=== PATIENT | male | born 1995 | race Caucasian/White ===

== ENCOUNTER 2020-09-22 08:59 | Emergency (ER) | payer MEDICAID ==
[~2020-09-22] VITALS: Ht 170.2 cm; Wt 74.8 kg
[2020-09-22] MEDS ORDERED: EPIPEN 2-P0.3 MG/0.3 IM (09:15)
[2020-09-22] MEDS ORDERED: PREDNISONE20 MG ORAL (09:15)
[2020-09-22] MEDS ORDERED: DiphenhydrAMINE 25mg/10ml Elixir ORAL ONE (09:15)
[2020-09-22] MEDS ORDERED: EPINEPHrine 1mg/1ml Amp IM ONE (09:15)
[2020-09-22] MEDS ORDERED: BENADRYL ALLERG25 M1 PO (09:15)
[2020-09-22] MEDS ORDERED: ALBUTEROL2.5 MG/3 M HHN (09:15)
[2020-09-22 09:17] VITALS: BP 126/74
[2020-09-22] MEDS ORDERED: FAMOTIDINE20 MG ORAL (09:18)
--- NOTE | 2020-09-22 09:18 | Emergency Room Report ---
History of Present Illness General Chief Complaint: Allergic Reaction Source: Patient, EMS Present Illness HPI 24-year-old male with past medical history of asthma presents by ambulance with chief complaint of itchy skin rash, shortness of breath, and nausea. Patient has been experiencing symptoms on and off since Thanksgiving. He admits to using a new soap/detergent and is exposed to cat hair and dander at home for which he is allergic to. Denies recent dietary changes, travel, sick contacts, fever, chills, cough, vomiting, diarrhea, headache, photophobia, neck pain, back pain, dysuria, melena, hematochezia, hemoptysis, chest pain or any other symptoms. Patient has not ever been evaluated by an chalk extruding machine operator. Denies history of intubation. The patient's symptoms were gradual onset, severity was moderate, duration since approximately 1 month. Quality: Itching Past medical history: Asthma Past surgical history: Denies Smoking: Denies Alcohol use: Denies Drug use: Marijuana Review of systems: CONST: No fevers or chills, No night sweats PULMONARY: No productive cough, positive shortness of breath CARDIAC: No chest pain, No palpitations GI: No vomiting, No diarrhea , No melena_or_BRBPR : No dysuria, No hematuria, No discharge NEURO: No new_focal_weakness_or_numbness, No confusion, No vision changes 14 point Review of Systems is otherwise negative except per HPI Physical Exam: GENERAL: Awake_alert_ nontoxic, no acute distress Spo2 95% on RA -normal EYES: Extraocular muscles are intact. Conjunctivae clear. Lids without swelling ENT: External nose and ear normal_in_appearance. Oropharynx clear. Head_atraumatic, Moist_oral_mucosa NECK: No JVD. No meningismus. No thyromegaly. Supple. Trachea midline RESP: No stridor, drooling, hoarse voice or dysphonia. Airway is intact. Uvula is midline. No angioedema or lip swelling. Normal respiratory effort. Symmetric rise. No stridor. Clear_to_auscultation_No_rales_No_wheezes CARDIAC: Tachycardic and regular rhytm. No_significant pedal edema. ABDOMEN: Soft. Nondistended. Nontender_No_rebound_or_guarding. MSK: Normal muscle tone, without rigidity. Extremities without asymmetric deformity or swelling. SKIN: Diffuse urticaria to the anterior chest, back, arms, forearms NEUROLOGIC: Alert, oriented x3. Motor_and_sensation_grossly_intact. No truncal ataxia. Gait_normal Psych: Normal mood and affect, normal judgment and insight - COORDINATION OF CARE Case was discussed with: Patient Any labs and imaging that were ordered were interpreted as part of the medical decision making: Medical Decision Making/Plan: DDx: Allergy versus anaphylaxis versus urticaria versus angioedema Patient presenting with rash and mild edema of the tongue in the setting of taking new medication, appears consistent with mild anaphylaxis. Patient protecting airway, no need for prophylactic intubation at this time point. Patient will be given epinephrine IM as well as Benadryl, Pepcid and pepcid and be observed for several hours. Patient observed with serial exams for over 2-3 hours and had significant improvement after the epinephrine and symptoms did not recur. Patient had no severe side effects after the initiation of epinephrine. Patient now back to baseline, appears stable for discharge home. Will discharge patient home with EpiPen, prednisone, Benadryl, and Pepcid to take for the next 5 days. Patient was instructed to avoid all potential allergic stimuli in the future The patient was instructed to avoid potential precipitating factor and to follow up with their regular physician for referral to multi media specialist for definitive allergy testing. Pertinent results reviewed with the patient. I educated the patient on the current treatment plan including the risks, benefits, and alternatives. I also discussed the extent and limitations of the current evaluation. The patient expressed understanding and agreement with plan. I recommended PMD follow-up within 1-2 days. Also advised that the patient return to the Emergency Department as soon as possible if they experience any new, persistent, or worsening symptoms. -CRITICAL CARE STATMENT- Given patient's presentation with acute anaphylaxis, required my immediate evaluation and attention Organ systems at risk include: cardiac / circulatory /respiratory Critical care performed for 120 minutes. Time is exclusive of separately billable procedures. Time includes: direct patient care, patient reassessment, coordination of patient care, review of patient's medical records, medical consultation, family consultation regarding treatment decisions and documentation of patient care. 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 COVID-19 Screening: Negative COVID-19 COVID-19 Testing Source: 2 months ago Nursing Documentation-[facility] Past Medical History: No Stated History Physical Exam Vital Signs Date Time Temp Pulse Resp B/P (MAP) Pulse Ox O2 Delivery O2 Flow Rate FiO2 09/22/20 08:55 99.1 106 16 126/74 (91) 100 Room Air Medical Decision Making Diagnostic Impression: Primary Impression: Allergic reaction Additional Impression: Anaphylactic reaction Last Vital Signs Date Time Temp Pulse Resp B/P (MAP) Pulse Ox O2 Delivery O2 Flow Rate FiO2 09/22/20 08:55 99.1 106 16 126/74 (91) 100 Room Air Disposition: HOME, SELF-CARE Admit Decision Time: 12:30 Condition: Stable Scripts Albuterol Sulfate (PROVENTIL HFA) 6.7 Gm Hfa.aer.ad 6.7 GM IH QID for 7 Days, #1 GM Prov: Sallie Esposito.Scott. 09/22/20 Famotidine* (Pepcid 20mg tablet*) 20 Mg Tablet 20 MG ORAL DAILY PRN for rash for 14 Days, #14 TAB 0 Refills Prov: Sallie Esposito.O. 09/22/20 Prednisone* (PREDNISONE*) 20 Mg Tablet 40 MG ORAL DAILY for 5 Days, #10 TAB Prov: Sallie Esposito.O. 09/22/20 Diphenhydramine Hcl (BENADRYL ALLERGY) 25 Mg Tablet 25 MG PO QID for urticaria for 7 Days, #28 TAB Prov: Sallie Esposito.Scott. 09/22/20 Epinephrine (Epipen 2-Escobar) 0.3 Mg/0.3 Ml Auto.injct 0.3 MG IM ONCE for anaphylaxis for 1 Day, #1 EA Prov: Sallie Esposito.O. 09/22/20 Patient Instructions: Allergies, Anaphylactic Reaction, [id number] Additional Instructions: Instructions for patient/csr retail: Follow up with your physician in 1-2 days for referral to chalk extruding machine operator. Avoid all allergic stimuli. Follow-up with your doctor sooner if your condition requires a more timely clinical reevaluation. Return to the emergency department immediately if you feel that your condition is worsening or if you have any new or concerning symptoms. Review your discharge instructions and take any prescriptions given as instructed. [facility] PROVIDES FREE OR LOW-COST HEALTH SERVICES TO PEOPLE WHO CAN SHOW PROOF THAT THEY LIVE IN [facility]. TO FIND MORE CLINICS PARTNERED WITH [facility] TO PROVIDE SERVICE, PLEASE CALL . Sallie Esposito D.O. Sep 22, 2020 09:18
--- NOTE | 2020-09-22 09:20 | NUR ---
ED Nurse Note: patient from home and walked in due to possible allergic reaction and rashes all over body x 2 weeks. Pt states exposure to cats. nad noted, vss, ambulatory, a/ox4, denies pain.
[2020-09-22] MEDS ORDERED: PROVENTIL HFA6.7 G1 IH (10:01)
[2020-09-22 11:08] VITALS: BP 115/76
[2020-09-22 11:12] VITALS: BP 115/76
--- NOTE | 2020-09-22 11:12 | NUR ---
ED Nurse Note: Patient cleared by health care Provider for discharge. DC instructions/prescription was given and explained to pt and verbalized understanding of teachings. All medical deviecs such as ID band removed. Pt is AAO x4, ambulatory and left with all personal belongings.
== END 2020-09-22 11:12 | disposition home or self-care (01) ==
LOC: EDBD 08:59 → EMR 09:34
DX: J30.81 Allergic rhinitis due to animal (cat) (dog) hair and dander (principal); T78.2XXA Anaphylactic shock, unspecified, initial encounter; F12.90 Cannabis use, unspecified, uncomplicated
CPT/HCPCS: 96372; J0171; J8540; Z7502; 99283